=== PATIENT | female | born 1980 | race African-American/Black ===

== ENCOUNTER → 2017-03-31 | Outpatient (CLI) | payer BC, MEDICAID ==
[2017-03-31 12:23] LABS: ABSOLUTE BASOPHILS # (AUTO) 0.1 10^3/uL (0.0-0.2); ABSOLUTE EOSINOPHILS # (AUTO) 0.2 10^3/uL (0.0-0.6); ABSOLUTE LYMPHOCYTES (AUTO) 2.9 10^3/uL (0.5-4.7); ABSOLUTE MONOCYTES (AUTO) 0.8 10^3/uL (0.1-1.4); ABSOLUTE NEUT (AUTO) 4.8 10^3/uL (1.7-8.2); BASOPHILS % (AUTO) 0.9 % (0-2); EOSINOPHILS % (AUTO) 2.6 % (0-6); HEMATOCRIT 40.9 % (36.0-47.0); HEMOGLOBIN 13.6 g/dL (12.0-15.5); HGB HCT DIFFERENCE -0.1; LYMPHOCYTES % (AUTO) 33.3 % (13-45); MEAN CORPUSCULAR HEMOGLOBIN 29.4 pg (27.0-33.4); MEAN CORPUSCULAR HGB CONC 33.2 g/dL (32.0-36.0); MEAN CORPUSCULAR VOLUME 89 fl (80-97); MONOCYTES % (AUTO) 8.5 % (3-13); RED BLOOD COUNT 4.62 10^6/uL (3.72-5.28); RED CELL DISTRIBUTION WIDTH 14.1 % (11.5-14.0); SEGMENTED NEUTROPHILS % (AUTO) 54.7 % (42-78); WHITE BLOOD COUNT 8.8 10^3/uL (4.0-10.5)
== END ==
LOC: OD 10:52
PROVIDERS: ATTEND Nurse Practitioner Acute Care
DX: M79.89 Other specified soft tissue disorders (principal)
CPT/HCPCS: 36415; 84550; 85025

== ENCOUNTER 2019-01-12 07:50 | Emergency (ER) | payer BC, MEDICAID ==
[2019-01-12 07:59] VITALS: BP 148/88
--- NOTE | 2019-01-12 08:56 | ER Document Report ---
ED Medical Screen (RME) - General Chief Complaint: Flu Symptoms Stated Complaint: BODYACHE Time Seen by Provider: 01/12/19 08:48 Primary Care Provider: JANINE DEJESUS MD [Primary Care Provider] - Follow up as needed Mode of Arrival: Ambulatory Information source: Patient Notes: pt presents with c/o body aches, MILLER, cough, bilateral hands for a week. Took nyquil without relief of symptoms. Denies f/v had diarrhea, went away. 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 discusses symptoms such as bilateral lower arms numb, tingling cp intermittent. pt reports decreased appetite. Pt reports she called into work last night and may need some time off to rest. She has an appointment with Dr. Dejesus cris Alvarez in room, report given to her. TRAVEL OUTSIDE OF THE [place] IN LAST 30 DAYS: No - Related Data Allergies/Adverse Reactions: No Known Allergies Allergy (Verified 01/12/19 08:22) Past Medical History - Social History Chew tobacco use (# tins/day): No Frequency of alcohol use: Occasional Drug Abuse: None Endocrine Medical History: Denies: Hx Diabetes Mellitus Type 1, Hx Diabetes Mellitus Type 2 Renal/ Medical History: Denies: Hx Peritoneal Dialysis Skin Medical History: Denies Hx MRSA Past Surgical History: Reports: Hx Orthopedic Surgery, Hx Tubal Ligation - Immunizations Immunizations up to date: Yes Hx Diphtheria, Pertussis, Tetanus Vaccination: No Physical Exam - Vital signs Vitals: Temp Pulse Resp BP Pulse Ox 98.7 F 89 16 148/88 H 100 01/12/19 07:54 01/12/19 07:54 01/12/19 07:54 01/12/19 07:54 01/12/19 07:54 Course - Vital Signs Vital signs: Temp Pulse Resp BP Pulse Ox 98.7 F 89 16 148/88 H 100 01/12/19 07:54 01/12/19 07:54 01/12/19 07:54 01/12/19 07:54 01/12/19 07:54 Doctor's Discharge - Discharge Referrals: JANINE DEJESUS MD [Primary Care Provider] - Follow up as needed
--- NOTE | 2019-01-12 09:08 | ER Document Report ---
ED Flu Like - General Chief Complaint: Flu Symptoms Stated Complaint: BODYACHE Time Seen by Provider: 01/12/19 08:48 Primary Care Provider: JANINE DEJESUS MD [Primary Care Provider] - 01/19/19 Mode of Arrival: Ambulatory Information source: Patient Notes: 38-year-old female presented to ED for complaint of cough cold congestion body aches and back pain times 3 days. She also complained of bilateral hand pain that has been going on for a long time. Patient is alert and oriented respirations regular and speaking in full sentences walks with a even steady gait. TRAVEL OUTSIDE OF THE [place] IN LAST 30 DAYS: No - HPI Onset: Other - 3 days for the cough cold congestion 2 weeks for the pain and numbness to the hands and wrist Timing/Duration: Intermittent Quality of pain: Achy - Body aches, Burning - To the hands and wrist burning and numbness Severity: Moderate Pain Level: 3 Associated symptoms: Nonproductive cough, Rhinnorhea, Sinus pain/drainage, Sore throat Similar symptoms previously: Yes Recently seen / treated by doctor: No - Related Data Allergies/Adverse Reactions: No Known Allergies Allergy (Verified 01/12/19 08:22) Past Medical History - General Information source: Patient - Social History Smoking Status: Current Every Day Smoker Cigarette use (# per day): Yes - 1/2 ppd Chew tobacco use (# tins/day): No Frequency of alcohol use: Occasional Drug Abuse: None Occupation: [employer] Lives with: Family Family History: Reviewed & Not Pertinent Patient has suicidal ideation: No Patient has homicidal ideation: No - Past Medical History Cardiac Medical History: Reports: None Pulmonary Medical History: Reports: None EENT Medical History: Reports: None Neurological Medical History: Reports: None Endocrine Medical History: Reports: None Renal/ Medical History: Reports: None Malignancy Medical History: Reports: None GI Medical History: Reports: None Musculoskeletal Medical History: Reports Hx Musculoskeletal Deformity Skin Medical History: Reports None Psychiatric Medical History: Reports: None Traumatic Medical History: Reports: None Infectious Medical History: Reports: None Past Surgical History: Reports: Hx Orthopedic Surgery - discectomy lumbar, Hx Tubal Ligation - Immunizations Immunizations up to date: Yes Hx Diphtheria, Pertussis, Tetanus Vaccination: No Review of Systems - Review of Systems Constitutional: Recent illness. denies: Chills, Fever EENT: Nose congestion, Nose discharge, Sinus pressure, Sinus discharge, Throat pain Cardiovascular: No symptoms reported Respiratory: Cough Gastrointestinal: No symptoms reported Genitourinary: No symptoms reported Female Genitourinary: No symptoms reported Musculoskeletal: Other - Pain and numbness to the hands and wrist for about 2-3 weeks Skin: No symptoms reported Hematologic/Lymphatic: No symptoms reported Neurological/Psychological: No symptoms reported -: Yes All other systems reviewed and negative Physical Exam - Vital signs Vitals: Temp Pulse Resp BP Pulse Ox 98.7 F 89 16 148/88 H 100 01/12/19 07:54 01/12/19 07:54 01/12/19 07:54 01/12/19 07:54 01/12/19 07:54 Interpretation: Normal - General General appearance: Appears well, Alert - HEENT Head: Normocephalic, Atraumatic Eyes: Normal Pupils: PERRL Ears: Normal External canal: Normal Tympanic membrane: Normal Sinus: Normal Nasal: Purulent discharge, Swelling Mouth/Lips: Normal Mucous membranes: Normal Pharynx: Post nasal drainage. No: Erythema, Exudate, Tonsillar hypertrophy Neck: Normal - Respiratory Respiratory status: No respiratory distress Chest status: Nontender Breath sounds: Normal Chest palpation: Normal - Cardiovascular Rhythm: Regular Heart sounds: Normal auscultation Murmur: No - Abdominal Inspection: Normal Distension: No distension Bowel sounds: Normal Tenderness: Nontender Organomegaly: No organomegaly - Back Back: Normal, Nontender - Extremities General upper extremity: Normal inspection, Nontender, Normal color, Normal ROM, Normal temperature General lower extremity: Normal inspection, Nontender, Normal color, Normal ROM, Normal temperature, Normal weight bearing. No: Rachana's sign Wrist: Tender. No: Abrasion, Axial load of thumb pain, Deformity, Dislocation, Ecchymosis, Limited ROM, Navicular tenderness Hand: Tender, No evidence of human bite, No evidence of FB. No: Abrasion, Deformity, Dislocation, Ecchymosis, Instability, Laceration, Nail injury, Swelling - Neurological Neuro grossly intact: Yes Cognition: Normal Orientation: AAOx4 [place] Coma Scale Eye Opening: Spontaneous [place] Coma Scale Verbal: Oriented [place] Coma Scale Motor: Obeys Commands Kourtney Coma Scale Total: 15 Speech: Normal Motor strength normal: LUE, RUE, LLE, RLE Sensory: Normal - Psychological Associated symptoms: Normal affect, Normal mood - Skin Skin Temperature: Warm Skin Moisture: Dry Skin Color: Normal Course - Vital Signs Vital signs: Temp Pulse Resp BP Pulse Ox 98.7 F 89 16 148/88 H 100 01/12/19 07:54 01/12/19 07:54 01/12/19 07:54 01/12/19 07:54 01/12/19 07:54 Discharge - Discharge Clinical Impression: URI (upper respiratory infection) Qualifiers: URI type: unspecified viral URI Qualified Code(s): J06.9 - Acute upper respiratory infection, unspecified Hand pain Qualifiers: Laterality: bilateral Qualified Code(s): M79.641 - Pain in right hand Condition: Stable Disposition: HOME, SELF-CARE Additional Instructions: For your hand pain you need to follow-up with your primary doctor as this sounds like it could be a nerve conduction problem. He states her hands go numb sometimes when you are working. Your primary care doctor will need to do some nerve studies to find out if you have a nerve conduction problem. This is not an acute problem that I can address in the emergency room. You do have sensation to your fingers and have full range of motion to your hands wrist and arms. You have full rom. UPPER RESPIRATORY ILLNESS: You have a viral infection of the respiratory passages -- a "cold." This common infection causes nasal congestion, drainage, and often sore throat and cough. It is highly contagious. The disease usually lasts about 10 to 14 days. There is no "cure" for the viral infection -- it must run its course. If there is a complication, such as bacterial infection in the nose, sinuses, middle ear, or bronchial tubes, antibiotics may be required. The antibiotics won't affect the virus. Drink plenty of fluids. A humidifier may help. An expectorant medication or decongestant may make you more comfortable. Use acetaminophen or ibuprofen for fever or aches. See the doctor if fever persists over two days, if there is any significant worsening of your symptoms, or if you simply fail to improve as expected. COUGH-SUPPRESSANT & EXPECTORANT MEDICATION: You are to use a cough medication as needed for relief of symptoms. This medicine is a combination of an expectorant (to make the mucous thinner and more easily "coughed up") and a cough suppressant (to reduce the frequency of coughing). The cough-suppressant medicine is related to narcotics. You may experience mild nausea and sleepiness. Some patients who are very sensitive to narcotics may have stomach pain from this medicine. Taking the medicine with food reduces these side effects. Do not drive or work with machinery until you know how this medicine affects you. The expectorant should have no side effects. Iodine-containing expectorants (such as organidin) should not be taken by persons with active thyroid disease unless approved by your doctor. Call the doctor if you develop shortness of breath, hives, rash, itching, lightheadedness, or severe nausea and vomiting. USE OF ACETAMINOPHEN (Tylenol): Acetaminophen may be taken for pain relief or fever control. It's much safer than aspirin, offering a wider range of "safe" dosages. It is safe during . Some brand names are Tylenol, Panadol, Datril, Anacin 3, Tempra, and Liquiprin. Acetaminophen can be repeated every four hours. The following are maximum recommended dosages: >89 pounds or adults 650 mg to 900 mg Acetaminophen can be repeated every four hours. Maximum dose not to exceed 4000 mg a day. SMOKING: If you smoke, you should stop smoking. The tar and chemicals in cigarette smoke are harmful. Smoking has been shown to cause: emphysema chronic bronchitis lung cancer mouth and throat cancer stomach and pancreas cancer premature aging defects In addition, smoking increases ear and lung infections in children of smokers. Please try Coricidin HB for your cough and congestion symptoms. This can reduce the risk of elevated blood pressure and your blood pressure was a little high today. Please make sure you keep your appointment with your primary care doctor on the . You can also use Flonase for your cough and cold symptoms. This is a nasal spray there will decrease the secretions in your nose and decrease the secretions on the back your throat. You can also use salt and soda solution gargles. This will also remove the secretions from the back your throat which is causing you to cough. Salt and soda solution 1 quart of water 1 tablespoon of salt 1 teaspoon of baking soda Mixed 3 ingredients together and boil for 1 minute Placed in a covered quart jar Use 1/2 ounce of cold solution to gargle 3 times a day FOLLOW-UP CARE: If you have been referred to a physician for follow-up care, call the physicians office for an appointment as you were instructed or within the next two days. If you experience worsening or a significant change in your symptoms, notify the physician immediately or return to the Emergency Department at any time for re-evaluation. Forms: Elevated Blood Pressure, Smoking Cessation Education, Return to Work Referrals: JANINE DEJESUS MD [Primary Care Provider] - 01/19/19
== END 2019-01-12 09:22 | disposition home or self-care (01) ==
LOC: ER 07:50
DX: J06.9 Acute upper respiratory infection, unspecified (principal); B97.89 Other viral agents as the cause of diseases classified elsewhere; M79.641 Pain in right hand; M79.642 Pain in left hand; R05 Cough; M54.9 Dorsalgia, unspecified; R20.0 Anesthesia of skin; J34.9 Unspecified disorder of nose and nasal sinuses; J02.9 Acute pharyngitis, unspecified; R09.82 Postnasal drip; R09.81 Nasal congestion; F17.210 Nicotine dependence, cigarettes, uncomplicated
CPT/HCPCS: 99283

== ENCOUNTER 2020-10-04 14:36 | Emergency (ER) | payer OTHER ==
[2020-10-04] MEDS ORDERED: CYCLOBENZAPRINE HCL 10 MG TABLET PO ONE (14:51)
[2020-10-04] MEDS ORDERED: ACETAMINOPHEN 325 MG TABLET PO ONE (14:51)
--- NOTE | 2020-10-04 15:20 | RADIOLOGY REPORT (SQ) ---
EXAM DESCRIPTION: L SPINE WHOLE IMAGES COMPLETED DATE/TIME: 10/04/2020 3:10 pm REASON FOR STUDY: pain COMPARISON: 11/26/2014 NUMBER OF VIEWS: Five views including obliques. TECHNIQUE: AP, lateral, oblique, and sacral radiographic images acquired of the lumbar spine. LIMITATIONS: None. FINDINGS: MINERALIZATION: Normal. SEGMENTATION: Normal. No transitional anatomy. ALIGNMENT: Normal. VERTEBRAE: Maintained height. No fracture or worrisome bone lesion. DISCS: Disc space narrowing and osteophyte formation L4- 5. POSTERIOR ELEMENTS: Pedicles and facets are intact. No pars defect or posterior arch defects. HARDWARE: None in the spine. PARASPINAL SOFT TISSUES: Normal. PELVIS: Intact as visualized. No fractures or worrisome bone lesions. SI joints intact. OTHER: No other significant finding. IMPRESSION: Spondylosis L4-5. TECHNICAL DOCUMENTATION: JOB ID: [id number] 2010 [employer]- All Rights Reserved Reading location - IP/workstation name: [email or web address]
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
[2020-10-04 16:09] VITALS: BP 138/88
--- OUTSIDE RECORDS SUMMARY | 2020-10-05 15:43 | XMS REPORT ---
:1980 [facility] [place] [address] [place] [id number] Care Team Providers Name Role Phone Zack Attending Clinician Unavailable Quang Wilson Attending Clinician Unavailable Bri Attending Clinician Unavailable Allergies, Adverse Reactions, Alerts This patient has no known allergies or adverse reactions. Medications This patient has no known medications. Problems This patient has no known problems. Procedures Procedure Date / Time Performed Performing Clinician Devic e OFFICE/OUTPATIENT VISIT EST 2019-12-20 14:15:00 SMEAR WET MOUNT SALINE/INK 2019-12-20 14:15:00 OFFICE/OUTPATIENT VISIT EST 2018-09-28 10:30:00 PREV VISIT EST AGE 18-39 2017-01-28 09:45:00 Results Test Description Test Time Test Comments Text Results Atomic Results Result Comments CHLAMYDIA/N. GONORRHOEAE RNA, TMA, UROGENITAL 2019-12-21 10:32:0 0 Test Item Value Reference Range Comments NEISSERIA GONORRHOEAE RNA, TMA, UROGENITAL NOT DETECTED NOT D ETECTED (test code = 81069509) CHLAMYDIA TRACHOMATIS RNA, TMA, UROGENITAL NOT DETECTEDNOT D ETECTED NOT DETECTED (test code = 07996135) CHLAMYDIA/N. GONORRHOEAE RNA, TMA, [id number] 11:26:00 Test Item Value Reference Range Comments CHLAMYDIA TRACHOMATIS RNA, TMA, UROGENITAL NOT DETECTED NOT D ETECTED (test code = 23126279) NEISSERIA GONORRHOEAE RNA, TMA, UROGENITAL NOT DETECTED NOT D ETECTED (test code = 38919937) BV/VAGINITIS PANEL DNA [id number] 11:26:00SEE NOTEUDS - POC Test\S\ 2018-09-28 10:30:00 Test Item Value Reference Range Comments UDS - POC Test (test code = UDSPOC) positive CBC WITH DIFF\S\[id number] 11:11:00 Test Item Value Reference Range Comments SEGMENTED NEUTROPHILS % (AUTO) (test code = 54.7 % 42-7 8 SEG%) ABSOLUTE BASOPHILS # (AUTO) (test code = BA#) 0.1 10 3/uL 0. 0-0.2 ABSOLUTE NEUT (AUTO) (test code = NE#) 4.8 10 3/uL 1.7-8.2 RED BLOOD COUNT (test code = RBC) 4.62 10 6/uL 3.72-5.28 HEMOGLOBIN (test code = HGB) 13.6 g/dL 12.0-15.5 MEAN CORPUSCULAR VOLUME (test code = MCV) 89 fl 80-97 MEAN CORPUSCULAR HEMOGLOBIN (test code = MCH) 29.4 pg 27 .0-33.4 MEAN CORPUSCULAR HGB CONC (test code = MCHC) 33.2 g/dL 32. 0-36.0 WHITE BLOOD COUNT (test code = WBC) 8.8 10 3/uL 4.0-10.5 ABSOLUTE EOSINOPHILS # (AUTO) (test code = EO#) 0.2 10 3/uL 0.0-0.6 HEMATOCRIT (test code = HCT) 40.9 % 36.0-47.0 ABSOLUTE MONOCYTES (AUTO) (test code = MO#) 0.8 10 3/uL 0.1- 1.4 EOSINOPHILS % (AUTO) (test code = EO%) 2.6 % 0-6 ABSOLUTE LYMPHOCYTES (AUTO) (test code = LY#) 2.9 10 3/uL 0. 5-4.7 RED CELL DISTRIBUTION WIDTH (test code = RDW) 14.1 % 11 .5-14.0 LYMPHOCYTES % (AUTO) (test code = LY%) 33.3 % 13-45 PLATELET COUNT (test code = PLT) 222 10 3/uL 150-450 MONOCYTES % (AUTO) (test code = MO%) 8.5 % 3-13 BASOPHILS % (AUTO) (test code = BA%) 0.9 % 0-2 URIC ACID\[id number] 11:11:00 Test Item Value Reference Range Comments URIC ACID (test code = URIC) 5.3 mg/dL 2.5-7.0 CBC WITH DIFF\S\[id number] 11:11:00 Test Item Value Reference Range Comments LYMPHOCYTES % (AUTO) (test code = LY%) 33.3 % 13-45 MEAN CORPUSCULAR HEMOGLOBIN (test code = MCH) 29.4 pg 27 .0-33.4 RED CELL DISTRIBUTION WIDTH (test code = RDW) 14.1 % 11 .5-14.0 EOSINOPHILS % (AUTO) (test code = EO%) 2.6 % 0-6 HEMATOCRIT (test code = HCT) 40.9 % 36.0-47.0 ABSOLUTE EOSINOPHILS # (AUTO) (test code = EO#) 0.2 10 3/uL 0.0-0.6 ABSOLUTE BASOPHILS # (AUTO) (test code = BA#) 0.1 10 3/uL 0. 0-0.2 ABSOLUTE NEUT (AUTO) (test code = NE#) 4.8 10 3/uL 1.7-8.2 HEMOGLOBIN (test code = HGB) 13.6 g/dL 12.0-15.5 RED BLOOD COUNT (test code = RBC) 4.62 10 6/uL 3.72-5.28 MONOCYTES % (AUTO) (test code = MO%) 8.5 % 3-13 MEAN CORPUSCULAR VOLUME (test code = MCV) 89 fl 80-97 PLATELET COUNT (test code = PLT) 222 10 3/uL 150-450 MEAN CORPUSCULAR HGB CONC (test code = MCHC) 33.2 g/dL 32. 0-36.0 BASOPHILS % (AUTO) (test code = BA%) 0.9 % 0-2 WHITE BLOOD COUNT (test code = WBC) 8.8 10 3/uL 4.0-10.5 SEGMENTED NEUTROPHILS % (AUTO) (test code = 54.7 % 42-7 8 SEG%) ABSOLUTE MONOCYTES (AUTO) (test code = MO#) 0.8 10 3/uL 0.1- 1.4 ABSOLUTE LYMPHOCYTES (AUTO) (test code = LY#) 2.9 10 3/uL 0. 5-4.7 Allergen, Latex, [id number] 11:41:00 Test Item Value Reference Range Comments Allergen, Latex, k82 (test code = 979614) <0.10 kU/L [id number] 10:45:00 Test Item Value Reference Range Comments TSH (test code = 607809) 3.16 mIU/L CMP with Estimated [id number] 10:45:00 Test Item Value Reference Range Comments Chloride (test code = 074202) 105 mmol/L 98-110 BUN (test code = 689556) 7 mg/dL 7-25 Sodium (test code = 748787) 141 mmol/L 135-146 Total Protein (test code = 175409) 6.9 g/dL 6.1-8.1 Est GFR, NonAfrican Macedonian (test code = 365845) 84 mL/min >=60 AST/SGOT (test code = 664060) 16 U/L 10-30 Albumin (test code = 298335) 3.8 g/dL 3.6-5.1 Glucose (test code = 724502) 84 mg/dL 65-99 Calcium (test code = 812901) 9.4 mg/dL 8.6-10.2 Alkaline Phosphatase (test code = 437281) 65 U/L 33-115 Bilirubin, Total (test code = 700371) 0.3 mg/dL 0.2-1.2 Potassium (test code = 304838) 4.4 mmol/L 3.5-5.3 ALT/SGPT (test code = 625859) 14 U/L 6-29 Est GFR, (test code = 230296) >89 mL/min > =60 CO2 (test code = 525413) 28 mmol/L 20-31 Creatinine (test code = 557504) 0.89 mg/dL 0.50-1.10 Lipid [id number] 10:45:00 Test Item Value Reference Range Comments Triglyceride (test code = 667955) 178 mg/dL <150 Total Chol/HDL Ratio (test code = 383549) 4.7 Ratio <=5.0 HDL Cholesterol (test code = 132362) 32 mg/dL >=46 Cholesterol (test code = 036939) 150 mg/dL 125-200 VLDL Cholesterol (Calc) (test code = 594250) 36 mg/dL <30 LDL Cholesterol (Calc) (test code = 066806) 82 mg/dL <130 Hepatitis B Surface Antibody, [id number] 10:45:00 Test Item Value Reference Range Comments Hepatitis B Surface Ab, Quant (test code = 0.0 mIU/mL 941134) Varicella Zoster Ab, [id number] 10:45:00 Test Item Value Reference Range Comments Varicella Zoster Ab, IgG (test code = 122221) 815.90 Index <1 35.00 Measles, Mumps, Rubella (MMR) [id number] 10:45:00 Test Item Value Reference Range Comments Rubeola Measles Ab, IgG (test code = 901256) 98.30 AU/mL <25 .00 Rubella Antibody (IgG) (test code = 590144) 3.43 Index <0.9 0 Mumps Virus Ab, IgG (test code = 178697) 188.00 AU/mL <9.00 CBC NO Diff (Complete Blood Count)2017-01-28 10:45:00 Test Item Value Reference Range Comments RBC (test code = 099009) 4.63 MIL/uL 3.87-5.11 MPV (test code = 444643) 10.2 fL 8.6-12.4 MCH (test code = 251732) 29.2 pg 26.0-34.0 Platelet Count (test code = 325248) 335 K/uL 150-400 MCV (test code = 441599) 90.3 fL 78.0-100.0 RDW (test code = 603936) 14.1 % 11.5-15.5 WBC (test code = 369615) 10.8 K/uL 4.0-10.5 MCHC (test code = 727028) 32.3 g/dL 30.0-36.0 Hematocrit (test code = 217421) 41.8 % 36.0-46.0 Hemoglobin (test code = 545917) 13.5 g/dL 12.0-15.0 Assessments Condition Name Status Diagnosis Date Treating Clinici an Body mass index (BMI) 32.0-32.9, adult Active Other specified noninflammatory disorders of Active vagina Acute upper respiratory infection, Active unspecified Intrinsic (allergic) eczema Active Low back pain Active Other intervertebral disc degeneration, Active lumbar region Unspecified contact dermatitis, unspecified Active cause Tobacco abuse counseling Active Encntr for general adult medical exam w/o Active abnormal findings Encounter for screening for respiratory Active tuberculosis Encounter for antibody response examination Active Obesity, unspecified Active Encounters Start End Encounter Admission Attending Care Care Encounter Date/Time Date/Time Type Type Clinicians Facility Department ID 2019-12-20 2019-12-20 Outpatient Zack [facility] C [id number] 14:15:00 14:15:00 [facility] [id number] s [id number] and [id number] [facility], 2018-09-28 2018-09-28 Outpatient Quang [facility] [id number] 10:30:00 10:30:00 Steve, Children [id number] s [id number] and [id number] [facility] 2017-01-28 2017-01-28 Outpatient Bri [facility] 66 [id number] 09:45:00 09:45:00 [facility] [id number] s [id number] and [id number] [facility] Social History This patient has no known social history. Vital Signs This patient has no known vital signs.
== END 2020-10-04 16:06 | disposition home or self-care (01) ==
LOC: ER 14:36
DX: M54.5 Low back pain (principal); V43.52XA Car driver injured in collision with other type car in traffic accident, initial encounter; M47.816 Spondylosis without myelopathy or radiculopathy, lumbar region; Z98.890 Other specified postprocedural states; F17.200 Nicotine dependence, unspecified, uncomplicated
CPT/HCPCS: 72110; 99283